=== PATIENT | female | born 1945 | race African-American/Black ===

== ENCOUNTER 2016-08-26 20:35 | Emergency (ER) | payer SELFPAY ==
[~2016-08-26] VITALS: Ht 149.9 cm; Wt 77.0 kg
[2016-08-26] MEDS ORDERED: METHYLPREDNISOLONE SOD SUCC 125 MG/2 ML VIAL IV ONE (22:45)
[2016-08-26] MEDS ORDERED: DIPHENHYDRAMINE 50MG/ML VIAL IV ONE (22:45)
[2016-08-26 23:12] LABS: BASOPHILS % 1.3 % (0.0-2.0); HEMATOCRIT. 35.4 % (36.0-48.0); HEMOGLOBIN. 12.1 g/dL (12.0-16.0); LYMPHOCYTES % 32.8 % (20.0-50.0); MEAN CORPUSCULAR HEMOGLOBIN 27.5 pg (28.0-32.0); MEAN CORPUSCULAR VOLUME 80.7 fL (81.0-99.0); MEAN PLATELET VOLUME 9.1 fl (7.4-10.4); MONOCYTES % 6.7 % (2.0-8.0); NEUTROPHILS % 54.2 % (40.0-76.0); PLATELET 153 x1000/uL (130-400); RED BLOOD CELL COUNT 4.38 mill/uL (4.2-5.4); RED CELL DISTRIBUTION WIDTH 14.5 % (11.6-14.6)
[2016-08-26 23:15] LABS: CARBON DIOXIDE 25 mEq/L (21-32); CHLORIDE 109 mEq/L (98-107)
[2016-08-27 00:21] VITALS: BP 148/82
== END 2016-08-27 00:47 | disposition home or self-care (01) ==
LOC: ER 23:24
DX: L27.0 Generalized skin eruption due to drugs and medicaments taken internally (principal); E11.9 Type 2 diabetes mellitus without complications; I10 Essential (primary) hypertension; K57.90 Diverticulosis of intestine, part unspecified, without perforation or abscess without bleeding; Z87.11 Personal history of peptic ulcer disease; Z85.3 Personal history of malignant neoplasm of breast; Z90.710 Acquired absence of both cervix and uterus; Z88.6 Allergy status to analgesic agent; Z88.3 Allergy status to other anti-infective agents; Z88.2 Allergy status to sulfonamides; T36.8X5A Adverse effect of other systemic antibiotics, initial encounter; Y92.018 Other place in single-family (private) house as the place of occurrence of the external cause
CPT/HCPCS: 36415; 80048; 85025; 96374; 96375; 99284; J1200; J2930; Z7610